=== PATIENT | male | born 1955 | race Caucasian/White ===

== ENCOUNTER 2019-07-10 17:07 | Emergency (ER) | payer BC ==
--- NOTE | 2019-07-10 18:21 | RAD REPORT ---
EXAM DESCRIPTION: RAD - Lumbar Spine 3 Views - 07/10/2019 5:58 pm CLINICAL HISTORY: Back pain FINDINGS: The alignment of the lumbar spine is satisfactory. No fracture or dislocation is seen. Mild spondylosis involves the lumbar spine Aortic and iliac calcifications are present
[2019-07-10] MEDS ORDERED: dexAMETHasone 10 MG/ML VIAL ONE (18:25)
[2019-07-10] MEDS ORDERED: DIAZEPAM 5 MG TABLET ONE (18:25)
[2019-07-10] MEDS ORDERED: LIDOCAINE 4% PATCH ONE (18:26)
--- NOTE | 2019-07-10 19:35 | ER ---
Nurse's Notes [facility] Name: Martín Johnston Age: 63 yrs Sex: Male : 1955 Arrival Date: 07/10/2019 Time: 17:09 Bed 15 Private MD: Diagnosis: Lumbago with sciatica, right side Presentation: 07/10 17:11 Presenting complaint: Low back pain that radiates to testicles, groin, and front of hb right leg after picking up bucket of tools this morning. Sent by chiropractor for poss ruptured disk. Transition of care: patient was not received from another setting of care. Onset of symptoms was July 10, 2019. Risk Assessment: Do you want to hurt yourself or someone else? Patient reports no desire to harm self or others. Care prior to arrival: Medication(s) given: ASA at 1200, Robaxin at 1500, diclofenac at 1515. 17:11 Method Of Arrival: Ambulatory hb 17:11 Acuity: KIRT 3 hb 17:28 Initial Sepsis Screen: Does the patient meet any 2 criteria? No. Patient's initial ls4 sepsis screen is negative. Does the patient have a suspected source of infection? No. Patient's initial sepsis screen is negative. Triage Assessment: 17:38 General: Appears uncomfortable, Behavior is calm, cooperative. Pain: Complains of pain ls4 in right low back Pain currently is 10 out of 10 on a pain scale. Quality of pain is described as stabbing, throbbing, Pain began suddenly. Neuro: No deficits noted. Cardiovascular: No deficits noted. Respiratory: No deficits noted. Musculoskeletal: Circulation, motion, and sensation intact. Capillary refill < 3 seconds, Range of motion: intact in all extremities. Historical: - Allergies: 17:14 No Known Allergies; hb - Home Meds: 17:14 losartan-hydrochlorothiazide oral oral [Active]; rosuvastatin oral oral [Active]; Zetia hb 10 mg Oral tab 1 tab once daily [Active]; Aspirin Oral [Active]; - PMHx: 17:14 High Cholesterol; Hypertension; hb - PSHx: 17:14 Heart Stents; hb - Immunization history:: Adult Immunizations up to date. - Coronavirus screen:: The patient has NOT traveled to [place], [place], or [place] in the past 14 days. The patient has NOT had contact with known/suspected case of Coronavirus? Proceed with normal triage procedures. - Social history:: Smoking status: Patient denies any tobacco usage or history of. - Ebola Screening: : No symptoms or risks identified at this time. Screenin:26 Abuse screen: Denies threats or abuse. Denies injuries from another. Nutritional ls4 screening: No deficits noted. Tuberculosis screening: No symptoms or risk factors identified. Fall Risk None identified. No fall in past 12 months (0 pts). No secondary diagnosis (0 pts). No IV (0 pts). Ambulatory Aid- None/Bed Rest/Nurse Assist (0 pts). Gait- Normal/Bed Rest/Wheelchair (0 pts) Mental Status- Oriented to own ability (0 pts). Total Harris Fall Scale indicates No Risk (0-24 pts). Vital Signs: 17:00 BP 138 / 80; Pulse 64; Resp 14; Temp 97.9; Pulse Ox 99% on R/A; Pain 3/10; ls4 17:14 BP 151 / 89; Pulse 68; Resp 16; Temp 97.1; Pulse Ox 97% on R/A; Weight 86.18 kg; Height hb 5 ft. 9 in. (175.26 cm); Pain 10/10; 19:51 BP 133 / 76; Pulse 65; Resp 14; Pulse Ox 99% on R/A; Pain 3/10; ls4 17:14 Body Mass Index 28.06 (86.18 kg, 175.26 cm) hb ED Course: 17:09 Patient arrived in ED. ag5 17:12 Triage completed. hb 17:14 Arm band placed on. hb 17:21 Rd Andersen NP is PHCP. pm1 17:21 Tom Luke MD is Attending Physician. pm1 17:26 Nazanin Renee, VEE is Primary Nurse. ls4 17:26 Patient has correct armband on for positive identification. Fall risk band placed. Bed ls4 in low position. Call light in reach. Side rails up X 1. 17:26 No provider procedures requiring assistance completed. ls4 17:48 Lumbar Spine (3 Views) XRAY In Process Unspecified. EDMS 19:56 Patient did not have IV access during this emergency room visit. ls4 Administered Medications: 17:30 CANCELLED (Physician Discretion): predniSONE 60 mg PO once pm1 18:43 Drug: Lidoderm 5 % (700 mg/patch) 1 patches Route: Topical; Site: affected area; ls4 19:39 Follow up: Response: No adverse reaction; Marked relief of symptoms ls4 18:43 Drug: Valium 5 mg Route: PO; ls4 19:39 Follow up: Response: No adverse reaction; Marked relief of symptoms ls4 18:44 Drug: Decadron 10 mg Route: IM; Site: right deltoid; ls4 19:39 Follow up: Response: No adverse reaction; Marked relief of symptoms ls4 Outcome: 19:34 Discharge ordered by MD. pm1 19:51 Discharged to home ambulatory, with family. ls4 19:51 Condition: good 19:51 Discharge instructions given to patient, family, Instructed on discharge instructions, follow up and referral plans. medication usage, Demonstrated understanding of instructions, follow-up care, medications, Prescriptions given X 3. 19:57 Patient left the ED. ls4 Signatures: Dispatcher [employer] EDMS Rd Andersen, PHILL[employer] MARSHAL REFINERY pm1 Carli Nieto RN RN hb Stewart, Lisa, RN RN ls4 Ryann Ordoñez ag5
--- NOTE | 2019-07-10 19:36 | EDPHYS ---
Physician Documentation [facility] Name: Martín Johnston Age: 63 yrs Sex: Male : 1955 Arrival Date: 07/10/2019 Time: 17:09 Bed 15 Private MD: ED Physician Tom Luke HPI: 07/10 17:30 This 63 yrs old Male presents to ER via Ambulatory with complaints of Back pm1 Pain. 17:30 The patient presents with pain that is acute. The symptoms are located in the right low pm1 back. Onset: The symptoms/episode began/occurred this morning. Radiation to right lower leg. Associated signs and symptoms: Pertinent negatives: dysuria, fever, incontinence, numbness, tingling, weakness. The problem was sustained when bending over, and sliding a 5 gallon bucket from one side of his body to the other. Modifying factors: The patient symptoms are alleviated by remaining still, the patient symptoms are aggravated by movement. Severity of symptoms: in the emergency department the symptoms are actually worse. Went to the chiropractor prior to arrival and reports increased pain after manipulation. Historical: - Allergies: 17:14 No Known Allergies; hb - Home Meds: 17:14 losartan-hydrochlorothiazide oral oral [Active]; rosuvastatin oral oral [Active]; Zetia hb 10 mg Oral tab 1 tab once daily [Active]; Aspirin Oral [Active]; - PMHx: 17:14 High Cholesterol; Hypertension; hb - PSHx: 17:14 Heart Stents; hb - Immunization history:: Adult Immunizations up to date. - Coronavirus screen:: The patient has NOT traveled to [place], [place], or [place] in the past 14 days. The patient has NOT had contact with known/suspected case of Coronavirus? Proceed with normal triage procedures. - Social history:: Smoking status: Patient denies any tobacco usage or history of. - Ebola Screening: : No symptoms or risks identified at this time. ROS: 17:30 Constitutional: Negative for fever, chills, and weight loss. pm1 17:30 Neck: Negative for injury, pain, and swelling, Cardiovascular: Negative for chest pain, pm1 palpitations, and edema, Respiratory: Negative for shortness of breath, cough, wheezing, and pleuritic chest pain, Abdomen/GI: Negative for abdominal pain, nausea, vomiting, diarrhea, and constipation. 17:30 : Negative for injury, bleeding, discharge, and swelling, MS/Extremity: Negative for injury and deformity, Skin: Negative for injury, rash, and discoloration. 17:30 Back: Positive for of the right low back, pain and injury. Exam: 17:30 Constitutional: This is a well developed, well nourished patient who is awake, alert, pm1 and in no acute distress. Head/Face: Normocephalic, atraumatic. Neck: Trachea midline, no thyromegaly or masses palpated, and no cervical lymphadenopathy. Supple, full range of motion without nuchal rigidity, or vertebral point tenderness. No Meningismus. Chest/axilla: Normal chest wall appearance and motion. Nontender with no deformity. No lesions are appreciated. Cardiovascular: Regular rate and rhythm with a normal S1 and S2. No gallops, murmurs, or rubs. No pulse deficits. Respiratory: Lungs have equal breath sounds bilaterally, clear to auscultation and percussion. No rales, rhonchi or wheezes noted. No increased work of breathing, no retractions or nasal flaring. 17:30 Skin: Warm, dry with normal turgor. Normal color with no rashes, no lesions, and no evidence of cellulitis. MS/ Extremity: Pulses equal, no cyanosis. Neurovascular intact. Full, normal range of motion. 17:30 Abdomen/GI: Inspection: abdomen appears normal, Palpation: abdomen is soft and non-tender, in all quadrants. 17:30 Back: normal spinal alignment noted, vertebral tenderness, is not appreciated, Tenderness to right lower back with muscle spasm present. 17:30 Neuro: Orientation: is normal, Motor: is normal, moves all fours, strength is normal, strength is 5/5 in all extremities, right great toe 5/5 strength dorsi and plantar flexion, Sensation: is normal, no obvious gross deficits. Vital Signs: 17:00 BP 138 / 80; Pulse 64; Resp 14; Temp 97.9; Pulse Ox 99% on R/A; Pain 3/10; ls4 17:14 BP 151 / 89; Pulse 68; Resp 16; Temp 97.1; Pulse Ox 97% on R/A; Weight 86.18 kg; Height hb 5 ft. 9 in. (175.26 cm); Pain 10/10; 19:51 BP 133 / 76; Pulse 65; Resp 14; Pulse Ox 99% on R/A; Pain 3/10; ls4 17:14 Body Mass Index 28.06 (86.18 kg, 175.26 cm) hb MDM: 17:22 Patient medically screened. pm1 19:34 Data reviewed: vital signs. Data interpreted: Pulse oximetry: on room air is 97 %. pm1 Interpretation: normal. 19:34 Counseling: I had a detailed discussion with the patient and/or guardian regarding: the pm1 historical points, exam findings, and any diagnostic results supporting the discharge/admit diagnosis, radiology results, the need for outpatient follow up, to return to the emergency department if symptoms worsen or persist or if there are any questions or concerns that arise at home. 07/10 17:30 Order name: Lumbar Spine (3 Views) XRAY; Complete Time: 18:29 pm1 Administered Medications: 17:30 CANCELLED (Physician Discretion): predniSONE 60 mg PO once pm1 18:43 Drug: Lidoderm 5 % (700 mg/patch) 1 patches Route: Topical; Site: affected area; ls4 19:39 Follow up: Response: No adverse reaction; Marked relief of symptoms ls4 18:43 Drug: Valium 5 mg Route: PO; ls4 19:39 Follow up: Response: No adverse reaction; Marked relief of symptoms ls4 18:44 Drug: Decadron 10 mg Route: IM; Site: right deltoid; ls4 19:39 Follow up: Response: No adverse reaction; Marked relief of symptoms ls4 Disposition: 07/11 07:09 Co-signature as Attending Physician, Tom Luke MD. rn Disposition: 07/10/19 19:34 Discharged to Home. Impression: Lumbago with sciatica, right side. - Condition is Stable. - Discharge Instructions: Back Pain, Adult, Sciatica. - Prescriptions for Lidoderm 5 % Topical adhesive patch,medicated - apply 1 patch by TRANSDERMAL route once daily As needed; 30 Transdermal Patch. Medrol (Parish) 4 mg Oral Tablets, Dose Pack - take 1 tablet by ORAL route as directed - follow package instructions; 1 packet. Valium 5 mg Oral Tablet - take 1 tablet by ORAL route every 8 hours As needed; 10 tablet. - Medication Reconciliation Form, Thank You Letter, Antibiotic Education, Prescription Opioid Use form. - Follow up: Emergency Department; When: As needed; Reason: Worsening of condition. Follow up: Private Physician; When: 2 - 3 days; Reason: Recheck today's complaints, Continuance of care, Re-evaluation by your physician. - Problem is new. - Symptoms have improved. Signatures: Dispatcher [employer] EDMS Tom Luke MD MD rn Marinas, Patrick, NURSING SERVICES MANAGER NURSING SERVICES MANAGER pm1 Carli Nieto RN RN hb Stewart, Lisa, RN RN ls4 Corrections: (The following items were deleted from the chart) 07/10 17:30 17:29 predniSONE 60 mg PO once ordered. pm1 pm1 19:57 19:34 07/10/2019 19:34 Discharged to Home. Impression: Lumbago with sciatica, right ls4 side. Condition is Stable. Forms are Medication Reconciliation Form, Thank You Letter, Antibiotic Education, Prescription Opioid Use. Follow up: Emergency Department; When: As needed; Reason: Worsening of condition. Follow up: Private Physician; When: 2 - 3 days; Reason: Recheck today's complaints, Continuance of care, Re-evaluation by your physician. Problem is new. Symptoms have improved. pm1
[2019-07-10 20:03] VITALS: TEMP 97.1
[2019-07-10 20:06] VITALS: BP 133/76; O2SAT 99
== END 2019-07-10 19:57 | disposition home or self-care (01) ==
LOC: ER 17:07
DX: M54.41 Lumbago with sciatica, right side (principal); I10 Essential (primary) hypertension; E78.00 Pure hypercholesterolemia, unspecified; Z79.82 Long term (current) use of aspirin
CPT/HCPCS: 72100; 96372; 99283; J1100